=== PATIENT | male | born 1970 | race Caucasian/White ===

== ENCOUNTER → 2016-06-09 07:48 | Outpatient (CLI) | payer BC ==
[~2016-06-09 07:48] MED LIST: FEXOFENADINE H180 MG PO; LIPITOR20 MG PO; MEDROL4 MG; NORVASC2.5 MG PO; NP THYROID30 MG PO; OMEPRAZOLE20 M1 PO; PROVENTIL HFA6.7 GM; REVATIO20 MG PO; TERBINAFINE HCL PO; ZYRTEC-D T1 TAB.SR . PO
[2016-06-13 07:18] VITALS: BMI 26.6
== END | disposition home or self-care (01) ==
LOC: D.RAD 07:48
DX: R91.8 Other nonspecific abnormal finding of lung field (principal); K21.9 Gastro-esophageal reflux disease without esophagitis

== ENCOUNTER 2016-06-13 05:57 | Day surgery (SDC) | payer BC ==
[~2016-06-13] VITALS: Ht 172.7 cm; Wt 79.5 kg
[2016-06-13] MEDS ORDERED: REVATIO20 MG PO (06:33)
[2016-06-13] MEDS ORDERED: MEDROL4 MG (06:33)
[2016-06-13] MEDS ORDERED: LIPITOR20 MG PO (06:34)
[2016-06-13] MEDS ORDERED: FEXOFENADINE H180 MG PO (06:34)
[2016-06-13] MEDS ORDERED: OMEPRAZOLE20 M1 PO (06:34)
[2016-06-13] MEDS ORDERED: NORVASC2.5 MG PO (06:35)
[2016-06-13] MEDS ORDERED: PROVENTIL HFA6.7 GM (06:35)
[2016-06-13] MEDS ORDERED: ZYRTEC-D T1 TAB.SR . PO (06:36)
[2016-06-13] MEDS ORDERED: TERBINAFINE HCL PO (06:37)
[2016-06-13 07:18] VITALS: Ht 172.7 cm; Wt 79.5 kg
[2016-06-13] MEDS ORDERED: NP THYROID30 MG PO (07:22)
--- NOTE | 2016-06-13 09:51 | OP ---
PATIENT NAME: KEN FERRER MEDICAL RECORD: [id number] :70 LOCATION:D.OPS ADMISSION DATE: SURGEON: SRINIVASA ANTONIO MD DATE OF OPERATION: 06/13/2016 SURGEON: Srinivasa Antonio MD PREOPERATIVE DIAGNOSIS: Gastroesophageal reflux. POSTOPERATIVE DIAGNOSES: Gastroesophageal reflux, hiatal hernia and esophagitis. ANESTHESIA: Total intravenous anesthesia. COMPLICATIONS: None. SPECIMENS: Biopsy. 1. Duodenum. 2. Antrum. 3. Gastric body. 4. Gastroesophageal junction. Case was contaminated. ESTIMATED BLOOD LOSS: Minimal. OPERATIVE COURSE: After consent was obtained, the patient was taken to the endoscopy suite. At that time, a timeout was taken to confirm the correct patient and procedure. Next, total intravenous anesthesia was given, a bite block was placed. [place] was administered. Next, the endoscope was passed through the bite block. It was passed into the posterior oropharynx, under direct endoscopic vision, it was passed posterior the epiglottis and advanced to the upper esophageal sphincter. It was advanced to the esophagus under direct endoscopic vision and passed into the stomach under direct endoscopic vision. The stomach was insufflated. The scope was advanced to the pylorus. The pylorus was intubated and the scope was advanced into the first and second portion of the duodenum, at which time 2 duodenal biopsies were taken. The duodenum appeared within normal limits. The scope was withdrawn through the pylorus. There was some moderate distal antritis noted. Multiple biopsies were taken to the region of the antrum as well as there was also moderate appearing diffuse gastritis of the stomach, again, biopsies were taken. The scope was retroflexed, a small hiatal hernia was noted. The stomach was desufflated. The scope was withdrawn to the GE junction, again noted was the hiatal hernia. There was some abnormality to the Z line noted at this time. Multiple biopsies were taken at the GE junction along the Z line. Next, the scope was withdrawn into the esophagus evaluating the esophagus. There were no masses. No lesions. No strictures. At this time, the scope was withdrawn. The patient tolerated the procedure well. Postoperatively, he was transferred to recovery room in satisfactory condition. At the end of the case, all needle and instrument counts were correct. No complications occurred. 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
--- NOTE | 2016-06-13 10:16 | NUR ---
[address] DR. PACO NYE, GIVES PT. RX
== END 2016-06-13 10:15 | disposition home or self-care (01) ==
LOC: D.OPS 05:57
DX: K21.9 Gastro-esophageal reflux disease without esophagitis (principal); K44.9 Diaphragmatic hernia without obstruction or gangrene; K20.8 Other esophagitis; K29.50 Unspecified chronic gastritis without bleeding

== ENCOUNTER → 2016-08-31 19:53 | Outpatient (CLI) | payer BC ==
[2016-06-13 07:18] VITALS: BMI 26.6
== END | disposition home or self-care (01) ==
LOC: D.SLEEP 19:53
DX: G47.30 Sleep apnea, unspecified (principal)

== ENCOUNTER → 2016-09-06 19:53 | Outpatient (CLI) | payer BC ==
[2016-06-13 07:18] VITALS: BMI 26.6
== END | disposition home or self-care (01) ==
LOC: D.SLEEP 19:53
DX: G47.30 Sleep apnea, unspecified (principal)

== ENCOUNTER → 2016-11-14 09:36 | Outpatient (CLI) | payer BC ==
[2016-06-13 07:18] VITALS: BMI 26.6
== END | disposition home or self-care (01) ==
LOC: D.RT 08-05 11:00
DX: R06.00 Dyspnea, unspecified (principal)